=== PATIENT | male | born 1945 | race Caucasian/White ===

== ENCOUNTER 2016-11-17 22:41 | Observation (INO) | payer MEDICARE ==
[2016-11-17] MEDS ORDERED: ASPIRIN 81 MG CHEW PO STA (23:23)
[2016-11-17 23:38] LABS: Basophils % (A) 1 %; CH 32.8; CHCM 34.8; Eosinophils # (A) 0.2 k/uL (0-0.7); Eosinophils % (A) 2 %; HCT 42.5 % (39.0-53.0); HDW 2.39; Luc # (Auto) 0.34; Luc % (Auto) 4; Lymphocytes # (A) 2.1 k/uL (1.0-4.8); Lymphocytes % (A) 25 %; MCH 33.5 pg (25.0-35.0); MCHC 35.4 g/dL (31.0-37.0); MCV 94.8 fL (80.0-100.0); Mean Platelet Volume 7.2; Monocytes # (A) 0.8 k/uL (0-1.0); Monocytes % (A) 9 %; Neutrophils # (A) 4.9 k/uL (1.3-7.7); Neutrophils % (A) 59 %; RBC 4.48 m/uL (4.30-5.90); RDW 13.6 % (11.5-15.5); WBC 8.3 k/uL (3.8-10.6); WBC (Perox) 7.65
[2016-11-17 23:50] LABS: Prothrombin Time 9.9 sec (9.0-12.0)
[2016-11-17 23:52] LABS: ALT 44 U/L (21-72); AST 25 U/L (17-59); Alkaline Phosphatase 74 U/L (38-126); Anion Gap 11 mmol/L; Blood Urea Nitrogen 12 mg/dL (9-20); Calcium 9.5 mg/dL (8.4-10.2); Carbon Dioxide 25 mmol/L (22-30); Chloride 107 mmol/L (98-107); Glucose 94 mg/dL (74-99); Magnesium 2.1 mg/dL (1.6-2.3); Non-African American GFR(MDRD) >60 (>60 ml/min/1.73 sqM); Sodium 143 mmol/L (137-145); Total Bilirubin 0.5 mg/dL (0.2-1.3); Total Protein 6.8 g/dL (6.3-8.2)
[2016-11-18 00:05] LABS: Creatine Kinase 80 U/L (55-170)
--- NOTE | 2016-11-18 00:12 | XR ---
EXAM: XR Chest, 2 Views CLINICAL HISTORY: Reason: Chest Pain TECHNIQUE: Frontal and lateral views of the chest. COMPARISON: None. FINDINGS: Lungs: Bibasilar atelectasis and/or infiltrates, left greater than right. Pleural space: Unremarkable. No pneumothorax. Heart: Unremarkable. No cardiomegaly. Mediastinum: Atherosclerotic vascular calcifications involving the aortic arch. Bones/joints: Unremarkable. IMPRESSION: Bibasilar atelectasis and/or infiltrates, left greater than right.
[2016-11-18 00:19] LABS: Troponin I <0.012 ng/mL (0.000-0.034)
[2016-11-18] MEDS ORDERED: ONDANSETRON 4 MG/2 ML VIAL IVP PRN (00:23)
[2016-11-18] MEDS ORDERED: NALOXONE 0.4 MG/ML 1 ML VIAL IV PRN (00:23)
[2016-11-18] MEDS ORDERED: MORPHINE SULFATE 4 MG/ML SYRINGE IV PRN (00:23)
[2016-11-18] MEDS ORDERED: DEXTROSE 5%-0.45% NACL 1,000 ML IV SCH (00:30)
--- NOTE | 2016-11-18 00:32 | ED ---
General Adult HPI - General Chief complaint: Chest Pain Stated complaint: CHEST PAIN Time Seen by Provider: 11/17/16 22:55 Source: patient, RN notes reviewed Mode of arrival: wheelchair Limitations: no limitations - History of Present Illness Initial comments: 71-year-old male presenting with chest tightness that began approximately 2 PM today. Patient was at rest at the time. He denies any nausea, denies any radiating symptoms. States he may have had some mild shortness of breath at the time. He took nitroglycerin at home without any relief. Denies cough denies fever. Patient states he was pushing a car earlier in the day and believes this may be the cause of his pain. However he denies any pain while he was pushing the car and again his pain began at rest. Patient states his last stress test several years ago. He does have history of hypertension, no history diabetes, no history of tobacco smoking. - Related Data Home Medications Medication Instructions Recorded Confirmed Aspirin 81 mg PO DAILY 11/17/16 11/17/16 Cyanocobalamin (Vitamin B-12) 1,000 mcg PO DAILY 11/17/16 11/17/16 [Vitamin B-12] Diclofenac Sodium [Voltaren] 75 mg PO BID 11/17/16 11/17/16 Multivitamins, Thera [Multivitamin 1 tab PO DAILY 11/17/16 11/17/16 (formulary)] Thiamine [Vitamin B-1] 100 mg PO DAILY 11/17/16 11/17/16 amLODIPine [Norvasc] 5 mg PO DAILY 11/17/16 11/17/16 Allergies Allergy/AdvReac Type Severity Reaction Status Date / Time No Known Allergies Allergy Verified 11/17/16 23:10 Review of Systems ROS Statement: Those systems with pertinent positive or pertinent negative responses have been documented in the HPI. ROS Other: All systems not noted in ROS Statement are negative. Past Medical History Past Medical History: Hypertension History of Any Multi-Drug Resistant Organisms: None Reported Past Surgical History: Hernia Repair, Orthopedic Surgery, Prostate Surgery Additional Past Surgical History / Comment(s): cataract Past Psychological History: No Psychological Hx Reported Smoking Status: Never smoker Past Alcohol Use History: Daily Past Drug Use History: None Reported General Exam Limitations: no limitations General appearance: alert, in no apparent distress Head exam: Present: atraumatic, normocephalic Eye exam: Present: normal appearance, PERRL ENT exam: Present: normal exam, mucous membranes moist Neck exam: Present: normal inspection, full ROM Respiratory exam: Present: normal lung sounds bilaterally. Absent: respiratory distress Cardiovascular Exam: Present: regular rate, normal rhythm GI/Abdominal exam: Present: soft. Absent: distended, tenderness Extremities exam: Present: normal inspection, normal capillary refill, other ( Bilateral DP pulses intact). Absent: pedal edema Back exam: Present: normal inspection Neurological exam: Present: alert, oriented X3 Psychiatric exam: Present: normal affect, normal mood Skin exam: Present: warm, dry. Absent: diaphoretic Course Vital Signs 11/17/16 11/17/16 11/18/16 22:54 23:18 00:16 Temperature 98.0 F 98.0 F Pulse Rate 92 83 73 Respiratory 18 16 16 Rate Blood Pressure 140/88 145/87 128/73 O2 Sat by Pulse 96 95 96 Oximetry - Reevaluation(s) Reevaluation #1: 11/18/16 00:30 On reevaluation the patient remains asymptomatic. EKG Findings - EKG Comments: EKG Findings:: EKG obtained in the emergency department shows normal sinus rhythm with a ventricular rate 81, IA interval 184, QRS duration 92, QTc 441, there is no ST segment elevation or depression, no T-wave abnormalities Medical Decision Making - Medical Decision Making 71-year-old male with history of hypertension presenting with chest pain which occurred at rest. Patient believes his symptoms are related to moving a car earlier in the day. He describes them as tightness across his chest. Denies any radiating symptoms. Patient's pain is resolving emergency department. EKG is nonischemic. Chest x-ray shows by similar atelectasis versus infiltrate, although there is no history of cough no history of fever, pneumonia. Unlikely. Initial laboratory studies including cardiac enzymes is unremarkable. Patient will be placed in observation for serial cardiac enzymes and cardiology evaluation. He is made nothing by mouth. - Lab Data Result diagrams: 11/17/16 23:15 11/17/16 23:15 Lab Results 11/17/16 11/17/16 11/17/16 Range/Units 23:15 23:15 23:15 WBC 8.3 (3.8-10.6) k/uL RBC 4.48 (4.30-5.90) m/uL Hgb 15.0 (13.0-17.5) gm/dL Hct 42.5 (39.0-53.0) % MCV 94.8 (80.0-100.0) fL MCH 33.5 (25.0-35.0) pg MCHC 35.4 (31.0-37.0) g/dL RDW 13.6 (11.5-15.5) % Plt Count 184 (150-450) k/uL Neutrophils % 59 % Lymphocytes % 25 % Monocytes % 9 % Eosinophils % 2 % Basophils % 1 % Neutrophils # 4.9 (1.3-7.7) k/uL Lymphocytes # 2.1 (1.0-4.8) k/uL Monocytes # 0.8 (0-1.0) k/uL Eosinophils # 0.2 (0-0.7) k/uL Basophils # 0.0 (0-0.2) k/uL PT (9.0-12.0) sec INR (<1.1) APTT (22.0-30.0) sec Sodium 143 (137-145) mmol/L Potassium 5.0 (3.5-5.1) mmol/L Chloride 107 (98-107) mmol/L Carbon Dioxide 25 (22-30) mmol/L Anion Gap 11 mmol/L BUN 12 (9-20) mg/dL Creatinine 0.70 (0.66-1.25) mg/dL Est GFR (MDRD) Af Amer >60 (>60 ml/min/1.73 sqM) Est GFR (MDRD) Non-Af >60 (>60 ml/min/1.73 sqM) Glucose 94 (74-99) mg/dL Calcium 9.5 (8.4-10.2) mg/dL Magnesium 2.1 (1.6-2.3) mg/dL Total Bilirubin 0.5 (0.2-1.3) mg/dL AST 25 (17-59) U/L ALT 44 (21-72) U/L Alkaline Phosphatase 74 (38-126) U/L Total Creatine Kinase 80 (55-170) U/L CK-MB (CK-2) 1.0 (0.0-2.4) ng/mL CK-MB (CK-2) Rel Index 1.3 Troponin I <0.012 (0.000-0.034) ng/mL NT-Pro-B Natriuret Pep pg/mL Total Protein 6.8 (6.3-8.2) g/dL Albumin 3.9 (3.5-5.0) g/dL 11/17/16 11/17/16 Range/Units 23:15 23:15 WBC (3.8-10.6) k/uL RBC (4.30-5.90) m/uL Hgb (13.0-17.5) gm/dL Hct (39.0-53.0) % MCV (80.0-100.0) fL MCH (25.0-35.0) pg MCHC (31.0-37.0) g/dL RDW (11.5-15.5) % Plt Count (150-450) k/uL Neutrophils % % Lymphocytes % % Monocytes % % Eosinophils % % Basophils % % Neutrophils # (1.3-7.7) k/uL Lymphocytes # (1.0-4.8) k/uL Monocytes # (0-1.0) k/uL Eosinophils # (0-0.7) k/uL Basophils # (0-0.2) k/uL PT 9.9 (9.0-12.0) sec INR 1.0 (<1.1) APTT 23.0 (22.0-30.0) sec Sodium (137-145) mmol/L Potassium (3.5-5.1) mmol/L Chloride (98-107) mmol/L Carbon Dioxide (22-30) mmol/L Anion Gap mmol/L BUN (9-20) mg/dL Creatinine (0.66-1.25) mg/dL Est GFR (MDRD) Af Amer (>60 ml/min/1.73 sqM) Est GFR (MDRD) Non-Af (>60 ml/min/1.73 sqM) Glucose (74-99) mg/dL Calcium (8.4-10.2) mg/dL Magnesium (1.6-2.3) mg/dL Total Bilirubin (0.2-1.3) mg/dL AST (17-59) U/L ALT (21-72) U/L Alkaline Phosphatase (38-126) U/L Total Creatine Kinase (55-170) U/L CK-MB (CK-2) (0.0-2.4) ng/mL CK-MB (CK-2) Rel Index Troponin I (0.000-0.034) ng/mL NT-Pro-B Natriuret Pep 103 pg/mL Total Protein (6.3-8.2) g/dL Albumin (3.5-5.0) g/dL Disposition Clinical Impression: Chest pain Disposition: ADMITTED IP TO THIS [facility] Condition: Stable Referrals: Edgar Lopes MD [Primary Care Provider] - 1-2 days Decision to Admit Reason: Admit from EC Decision Date: 11/18/16 Decision Time: 00:32
[2016-11-18 01:21] VITALS: RESP 16
[2016-11-18 01:23] VITALS: BMI 34.4
[2016-11-18 06:32] LABS: Creatine Kinase 63 U/L (55-170)
[2016-11-18 06:44] LABS: Creatine Kinase MB 0.7 ng/mL (0.0-2.4); Troponin I <0.012 ng/mL (0.000-0.034)
[2016-11-18] MEDS ORDERED: ETODOLAC 400 MG TAB PO SCH (09:00)
[2016-11-18] MEDS ORDERED: ASPIRIN 81 MG CHEW PO SCH (09:00)
[2016-11-18] MEDS ORDERED: amLODIPine 5 MG TAB PO SCH (09:00)
--- NOTE | 2016-11-18 11:15 | ECHOF ---
Referral Reason:Systolic Murmur and Chest pain MEASUREMENTS -------- HEIGHT: 170.2 cm WEIGHT: 99.8 kg BP: 130/75 RVIDd: 3.7 cm (< 3.3) IVSd: 1.0 cm (0.6 - 1.1) LVIDd: 4.4 cm (3.9 - 5.3) LVPWd: 1.0 cm (0.6 - 1.1) IVSs: 1.5 cm LVIDs: 2.5 cm LVPWs: 1.5 cm LAESV Index (A-L): 14.96 ml/m Ao Diam: 3.5 cm (2.0 - 3.7) AV Cusp: 2.1 cm (1.5 - 2.6) LA Diam: 4.1 cm (2.7 - 3.8) MV E Ilya: 0.75 m/s MV DecT: 396 ms MV A Ilya: 1.09 m/s MV E/A Ratio: 0.68 RAP: 5.00 mmHg RVSP: 27.98 mmHg FINDINGS -------- Sinus rhythm. This was a technically adequate study. The left ventricular size is normal. Left ventricular wall thickness is normal. Overall left ventricular systolic function is normal with, an EF between 55 - 60 %. The right ventricle is normal in size and function. Normal LA size by volume 22+/-6 ml/m2. The right atrium is normal in size. The aortic valve is trileaflet and appears structurally normal. Trace to mild aortic regurgitation. The mitral valve is normal. Mild mitral regurgitation is present. Mild tricuspid regurgitation present. There is no evidence of pulmonary hypertension. The right ventricular systolic pressure, as measured by Doppler, is 27.98mmHg. Trace/mild (physiologic) pulmonic regurgitation. The aortic root size is normal. Normal inferior vena cava with normal inspiratory collapse consistent with estimated right atrial pressure of 5 mmHg. There is no pericardial effusion. Large echo free space in the liver, measuring 10.5 cm x 10.8 cm. This echo free space may be compromising right ventricular function. CONCLUSIONS -------- 1. Sinus rhythm. 2. There is no evidence of pulmonary hypertension. 3. Trace/mild (physiologic) pulmonic regurgitation. 4. The aortic root size is normal. 5. There is no pericardial effusion. 6. Large echo free space in the liver, measuring 10.5 cm x 10.8 cm. 7. This echo free space may be compromising right ventricular function. 8. This was a technically adequate study. 9. The left ventricular size is normal. 10. Overall left ventricular systolic function is normal with, an EF between 55 - 60 %. 11. Normal LA size by volume 22+/-6 ml/m2. 12. The aortic valve is trileaflet and appears structurally normal. 13. Trace to mild aortic regurgitation. 14. Mild mitral regurgitation is present. 15. Mild tricuspid regurgitation present. SUPERVISOR STAGE CARPENTRY: Orestes Olson RDCS
[2016-11-18 11:48] VITALS: BP 130/89; PULSE 96; TEMP 98
[2016-11-18 12:06] LABS: Creatine Kinase 67 U/L (55-170)
[2016-11-18 12:20] LABS: Creatine Kinase MB 0.6 ng/mL (0.0-2.4); Troponin I <0.012 ng/mL (0.000-0.034)
--- NOTE | 2016-11-18 13:49 | CONS ---
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 He has hypertension , degenerative joint disease, reasonably active person. Yesterday at about 11: 00 or so his car broke down and he was pushing the car. Had some physical activity with that, then he went home, rested and at 2 p.m. while he was rest felt some uncomfortable feeling in the chest and came into the hospital. He is resting comfortably without symptoms. Apparently he took some nitro, did not have any relief. Pain seems musculoskeletal. He does not smoke. His stress test was more than 5 to 10 years ago. He is a reasonably active person. At the time of my evaluation, he is resting comfortably. EKG is unremarkable. Troponins are normal. He drinks alcohol on a daily basis, but does not smoke. His hypertension is under good control. He is asymptomatic at the time of my evaluation. PAST MEDICAL HISTORY: 1. Hypertension. 2. Family history of CAD. 3. History of hernia repair, orthopedic surgery, prostate surgery. ALLERGIES: None. Medications include amlodipine 5 mg daily, vitamin supplements and also takes Voltaren for his arthritis pain and aspirin 81 mg daily. On examination, blood pressure is 130/70, pulse rate is 70 per minute and regular. HEENT: Unremarkable. Fundus was not examined by me. Neck is supple. No JVD. I do not hear a carotid bruit. Heart exam revealed S1 and S2 with a short systolic murmur at the base. Second heart sound is preserved. Lungs are clear. Abdomen is soft, nontender. Lower extremities reveal normal pulses. No edema. Central nervous system is normal. EKG revealed a sinus mechanism without significant ST-T changes. IMPRESSION: 1. Chest pain syndrome, seems atypical. 2. Hypertension. 3. Family history of coronary artery disease. RECOMMENDATION: I am recommending an echocardiogram to assess a systolic murmur and a stress echo to rule out ischemia. EKG and troponins are normal. Based on these findings, we will make further recommendations. If stress echo is normal, he can be discharged. Thank you very much for the consult. ANDREW
--- NOTE | 2016-11-18 16:30 | ECHOS ---
Referral Reason:chest pain MEASUREMENTS -------- HEIGHT: 170.2 cm WEIGHT: 99.8 kg BP: FINDINGS -------- Utilizing the standard Dank protocol the patient was exercised for 6 minutes, 0 seconds, achieving a maximum heart rate of 130 , which is 86% of predicted maximal heart rate. There was physiologic heart rate and blood pressure response to exercise. Max Heart Rate: 130 % of Max Predicted Heart Rate: 86% Rest Heart Rate: 86 Rest BP: 143/81 Max BP: 198/93 Mets Achieved: 6.9 The test was stopped because of fatigue. This level of exercise represents an average exercise tolerance for age. Sinus rhythm. In response to stress, the ECG showed no ST-T wave changes (see exercise report for details). Rare PVC's In response to stress, the ECG showed no ST-T wave changes (see exercise report for details). There were normal blood pressure and heart rate responses to stress. LV size, wall thickness and systolic function are normal, with an EF of 60%. Echo images were acquired at peak stress which demonstrated appropriate augmentation of all left ventricular segments with slight decrease in cavity size. CONCLUSIONS -------- 1. The test was stopped because of fatigue. 2. This level of exercise represents an average exercise tolerance for age. 3. In response to stress, the ECG showed no ST-T wave changes (see exercise report for details). 4. No 2D echocardiographic evidence of inducible ischemia to achieved workload. SKID ROAD WORKER: Madeleine Núñez, YANNA MTDD
--- NOTE | 2016-11-18 18:12 | HP ---
CHIEF COMPLAINT: Chest pain. HISTORY OF ILLNESS: Mr. Guerrier is a 71-year-old male with known history of alcohol abuse who drinks about 6 to 8 beers per day. He came to the hospital with complaints of chest pain that started approximately 2 p.m. yesterday. Patient was at rest at that time. He says that he did push a car, and he was having chest pain at that time. Otherwise, denied any nausea or vomiting. Denied any radiation of the pain to the left arm or neck or radiation to the back. Patient did have mild shortness of breath; no diaphoresis. The patient did take nitroglycerin at home, without any relief. The patient's last stress test was several years ago. He does have a history of hypertension. No history of diabetes mellitus. He does not smoke. The patient does drink on a daily basis. No recent illnesses. No sick contacts at home. No recent travel. REVIEW OF SYSTEMS: CONSTITUTIONAL: No fever. No chills. No weakness. RESPIRATORY: No cough or sputum production. CARDIOVASCULAR: Patient denies any chest pain now. No leg swelling. No palpitations. ABDOMEN: No nausea, vomiting, abdominal pain. GENITOURINARY: No dysuria. No hematuria. ENDOCRINE: Negative. PSYCHIATRY: Negative. SKIN: Negative. MUSCULOSKELETAL: Negative. All other 14-point review of systems negative except as above. PAST MEDICAL HISTORY: 1. Hypertension. 2. Alcohol abuse. PAST SURGICAL HISTORY: 1. Hernia repair. 2. Orthopedic surgery. 3. Prostate surgery. No psychosocial history. SOCIAL HISTORY: Patient was never a smoker. Does drink alcohol, 6 to 8 beers per day. Denied any marijuana. Denied any drugs or IVDU. ALLERGIES: NO KNOWN DRUG ALLERGIES. FAMILY HISTORY: Denied any history of hypertension or diabetes mellitus in the family. Home medications include: 1. Aspirin. 2. Cyanocobalamin. 3. Diclofenac. 4. Multivitamins. 5. Thiamine. 6. Norvasc. PHYSICAL EXAMINATION: [id number] male lying in bed comfortably. Awake, alert, oriented x3. He appears to be in no distress. VITALS: Blood pressure 130/75, pulse rate 62, respiration 16, temperature afebrile, pulse ox 96% on room air. HEENT: Atraumatic, normocephalic. Neck is supple. No JVD. CVS EXAM: S1, S2 heard. ( ) systolic murmur. No gallop. No rub. LUNGS: Bilateral air entry is present. No wheezing. No crackles. Non-labored breathing. ABDOMEN: Soft, non-tender. Bowel sounds are present. MANUFACTURING ADVISOR: Awake, alert, oriented x3. No focal deficit. EXTREMITIES: No edema. Pulses palpable bilaterally. No clubbing or cyanosis. PSYCHIATRIC: Cooperative. LABORATORY DATA: WBC 8.3, hemoglobin 15.0, platelets 184. INR 1.0. Sodium 143, potassium 5.0, chloride 107. Bicarb is 25. BUN 12, creatinine 0.7. GFR greater than 60. Calcium 9.5. Magnesium 2.1. Liver enzymes are not elevated. Troponin x3 negative. NTproBNP is not elevated at 103. Albumin 3.9. IMPRESSION: 1. Atypical chest pain. Rule out acute coronary syndrome at this time. 2. Hypertension. 3. Family history of coronary artery disease. 4. Alcohol abuse on a daily basis. DISCUSSION AND PLAN: Patient will be continued on heparin. Cardiology has seen the patient and recommended a stress test at this time. Will continue the telemetry monitoring. Serial troponins are negative. EKG showed normal sinus rhythm with no ST-T wave changes. Will continue the current management. Further recommendations based on the clinical course. FELISAD
--- NOTE | 2016-11-19 09:30 | DS ---
DATE OF ADMISSION: 11/18/2016 DATE OF DISCHARGE: 11/18/2016 Cardiology consultation and patient did have echocardiogram. IMPRESSION: 1. Atypical chest pain, ruled out acute coronary syndrome. Serial EKG and troponins are negative. 2-D echo showed normal ejection fraction. No wall motion abnormalities. Chest pain resolved now. 2. Alcohol abuse 6 to 8 beers per day. Counseled extensively. 3. Hypertension. 4. Family history of coronary artery disease. 5. History of prostate surgery. HOSPITAL COURSE: Mr. Guerrier is a 71-year-old male with above medical problems was admitted to the hospital with complaints of substernal chest pain. No radiation associated with mild shortness of breath and no diaphoresis. Patient was initially started on telemetry. Serial EKGs and troponins were done which were negative. Patient was seen by Cardiology and recommended 2-D echocardiogram , which was done showing normal ejection fraction. No wall motion abnormalities have been noted and no significant valvular changes have been noted as well. Otherwise patient's chest pain has completely resolved last night. Serial troponins are negative and telemetry showed no joint changes. Otherwise, patient is asymptomatic now and is stable for discharge home. Follow the primary care physician. Patient was counseled for alcohol abuse and was advised to take [id number] pain medications. DISCHARGE PHYSICAL EXAMINATION: A 71-year-old male lying in bed awake, alert, oriented x3. Appears to be in no apparent distress. Vital signs show blood pressure 130/89, pulse 96, respirations 16, temperature afebrile, pulse ox 94% on room air. LABORATORY DATA: Reviewed. Discharge physical examination done. DISCHARGE MEDICATIONS: 1. Aspirin 81 mg p.o. daily. 2. Vitamin B12 1000 mcg p.o. daily. 3. Voltaren 75 mg p.o. b.i.d. p.r.n. 4. Multivitamin 1 tablet p.o. daily. 5. Thiamin 100 mg p.o. daily. 6. Amlodipine 5 mg p.o. daily. Patient will be discharged home in stable condition. Activity as tolerated. Heart healthy diet. Home with self care. Follow with primary care physician Dr. Edgar Lopes in 1 to 2 days. NOTE: Patient also found to have cystic lesion in the liver and advised to follow with primary care physician for that. [facility]
== END 2016-11-18 13:50 | disposition home or self-care (01) ==
LOC: EC 22:41 → 3OBS 11-18 00:23
PROVIDERS: ADMIT Internal Medicine; ATTEND Internal Medicine
DX: R07.89 Other chest pain (principal); R07.1 Chest pain on breathing; R06.02 Shortness of breath; F10.10 Alcohol abuse, uncomplicated; I10 Essential (primary) hypertension; Z79.82 Long term (current) use of aspirin; Z79.899 Other long term (current) drug therapy; Z82.49 Family history of ischemic heart disease and other diseases of the circulatory system; M19.90 Unspecified osteoarthritis, unspecified site
CPT/HCPCS: 99285 ×2; 93005 ×2; 36415; 94760; 93017; 93306; 93350; 83880; 80053; 82550 ×2; 82553 ×2; 83735; 84484 ×2; 85025; 85610; 85730; 71020; G0378

== ENCOUNTER → 2016-11-23 | Outpatient (CLI) | payer MEDICARE ==
--- NOTE | 2016-11-23 15:54 | CT ---
EXAMINATION TYPE: CT abdomen pelvis wo/w con DATE OF EXAM: 11/23/2016 REFERENCE: NONE HISTORY: K76.89 Other Specified Disorders Of Liver HISTORY: Liver cyst without symptoms. REFERENCE: NONE CT DLP: [id number] mGy Automated exposure control for dose reduction was used. TECHNIQUE: Helical acquisition through the abdomen and pelvis was obtained following the oral ingesti on of with Oral Contrast and following intravenous administration of 100 mL of Omnipaque 300. The akilah a was reformatted in axial, coronal and sagittal projections. FINDINGS: There is minimal dependent atelectasis in the dependent portions of the lungs. There is no pleural or pericardial fluid. The heart is not enlarged. There is coronary artery calcification as w ell as other vascular calcifications present. There is a small hiatal hernia. Within the abdomen, there is a 10.8 x 9.8 x 10.1 cm simple appearing cyst within the left lobe of the liver. There is a questionable 2 cm adjacent cyst as well as 2 other adjacent cysts measuring 3.4 an d 0.8 cm respectively. The liver is not enlarged. The gallbladder is contracted. The spleen is unrema rkable. Both adrenal glands are normal. Both kidneys demonstrate function and appear more normal. The pancreas is unremarkable. There is no significant retroperitoneal, iliac or inguinal adenopathy. There are bilateral hip prostheses in place causing severe streak artifact through the pelvis. The bl adder cannot be assessed. There are scattered diverticula along the left side of the colon. There is no radiographic evidence o f diverticulitis. The appendix is not visualized. Small bowel loops are normal. There is been a previous ventral hernia repair. There is no free fluid and no free air. There is degenerative disc disease, facet arthropathy and hypertrophic spondylosis involving the spin e. There is a mild levoscoliosis. The cyst wall measures approximately 5.5 mm. IMPRESSION: 1. MULTIPLE HEPATIC CYSTS IN THE LEFT LOBE OF THE LIVER. THESE APPEAR FAIRLY SIMPLY CYSTIC. 2. SMALL HIATAL HERNIA. 3. UNCOMPLICATED DIVERTICULAR CHANGE INVOLVING THE LEFT SIDE OF THE COLON.
== END | disposition home or self-care (01) ==
LOC: RADCTMAIN 15:16
PROVIDERS: ATTEND Internal Medicine
DX: K76.89 Other specified diseases of liver (principal); K44.9 Diaphragmatic hernia without obstruction or gangrene; K57.30 Diverticulosis of large intestine without perforation or abscess without bleeding
CPT/HCPCS: 74178; Q9967

== ENCOUNTER → 2017-10-26 | Outpatient (CLI) | payer MEDICARE ==
--- NOTE | 2017-10-26 09:35 | US ---
EXAMINATION TYPE: US carotid duplex BILAT DATE OF EXAM: 10/26/2017 COMPARISON: NONE CLINICAL HISTORY: G45.9 TIA. Blurred vision, TIA EXAM MEASUREMENTS: RIGHT: Peak Systolic Velocity (PSV) cm/sec ----- Right CCA: 54.6 ----- Right ICA: 58.1 ----- Right ECA: 104.0 ICA/CCA ratio: 1.1 RIGHT: End Diastole cm/sec ----- Right CCA: 11.9 ----- Right ICA: 20.6 ----- Right ECA: 17.3 LEFT: Peak Systolic Velocity (PSV) cm/sec ----- Left CCA: 59.1 ----- Left ICA: 67.3 ----- Left ECA: 105.4 ICA/CCA ratio: 1.1 LEFT: End Diastole cm/sec ----- Left CCA: 15.5 ----- Left ICA: 22.0 ----- Left ECA: 20.1 VERTEBRALS (direction of flow): Right Vertebral: Antegrade Left Vertebral: Antegrade Rhythm: Normal No elevated velocities, no significant stenosis. IMPRESSION: 1. No significant hemodynamic stenosis by carotid Doppler ultrasound. Criteria for Assigning % of Stenosis / Diameter reduction (Estimation based on the indirect measurements of the internal carotid artery velocities (ICA PSV). 1. Normal (no stenosis)=ICA PSV < 125 cm/s: ratio < 2.0: ICA EDV<40 cm/s. 2. Less than 50% stenosis=ICA PSV < 125 cm/s: ratio < 2.0: ICA EDV<40 cm/s. 3. 50 to 69% stenosis=ICA PSV of 125 to 230 cm/s: ration 2.0 ? 4.0: ICA EDV 40-100 cm/s. 4. Greater than 70% stenosis to near occlusion= ICA PSV > 230 cm/s: ratio > 4.0: ICA EDV > 100 cm/s. 5. Near occlusion= ICA PSV velocities may be low or undetectable: variable ratio and ICA EDV. 6. Total occlusion=unable to detect flow.
== END | disposition home or self-care (01) ==
LOC: RADUSWWP 08:30
PROVIDERS: ATTEND Internal Medicine
DX: G45.9 Transient cerebral ischemic attack, unspecified (principal)
CPT/HCPCS: 93880

== ENCOUNTER → 2018-10-18 | Outpatient (CLI) | payer MEDICARE | END | disposition home or self-care (01) | LOC: LABWHC1 09:06 | PROVIDERS: ATTEND Internal Medicine | DX: Z08 Encounter for follow-up examination after completed treatment for malignant neoplasm (principal); Z85.46 Personal history of malignant neoplasm of prostate | CPT/HCPCS: 36415; 84153 ==

== ENCOUNTER → 2019-03-14 | Outpatient (CLI) | payer MEDICARE | END | disposition home or self-care (01) | LOC: LABWHC1 10:08 | PROVIDERS: ATTEND Internal Medicine | DX: Z85.46 Personal history of malignant neoplasm of prostate (principal) | CPT/HCPCS: 36415; 84153 ==

== ENCOUNTER 2019-03-31 10:22 | Emergency (ER) | payer MEDICARE ==
[2019-03-31 10:31] VITALS: BP 137/94; PULSE 98; RESP 18; TEMP 97.6
--- NOTE | 2019-03-31 10:54 | ED ---
General Adult HPI - General Chief complaint: Headache Stated complaint: Sinus infection Time Seen by Provider: 03/31/19 10:35 Source: patient, RN notes reviewed Mode of arrival: ambulatory Limitations: no limitations - History of Present Illness Initial comments: 74-year-old male with a past medical history of hypertension, prostate cancer, sciatica presents to the emergency department for a chief complaint of sinus infection. Patient states he has had a sinus infection for about 3 weeks. States he was on azithromycin and another unknown antibiotic. States it started to improve and then worsened again about 3 days ago. States she has pressure above his right eye in the right side of his face. States it radiates to his ear. Denies any dental pain. Denies fevers or chills. Patient states he is just here for another antibiotic. States he would have seen his doctor but since it is Monday he could not do so.Patient has no other complaints at this time including shortness of breath, chest pain, abdominal pain, nausea or vomiting, headache, or visual changes. - Related Data Home Medications Medication Instructions Recorded Confirmed Aspirin 81 mg PO DAILY 11/17/16 11/17/16 Cyanocobalamin (Vitamin B-12) 1,000 mcg PO DAILY 11/17/16 11/17/16 [Vitamin B-12] Diclofenac Sodium [Voltaren] 75 mg PO BID 11/17/16 11/17/16 Multivitamins, Thera [Multivitamin 1 tab PO DAILY 11/17/16 11/17/16 (formulary)] Thiamine [Vitamin B-1] 100 mg PO DAILY 11/17/16 11/17/16 amLODIPine [Norvasc] 5 mg PO DAILY 11/17/16 11/17/16 Previous Rx's Medication Instructions Recorded Amoxicillin/Potassium Clav 1 tab PO Q12HR #20 tab 03/31/19 [Augmentin 875-125 Tablet] Fluticasone Nasal [place] [Flonase 1 spray EA NOSTRIL DAILY #1 bottle 03/31/19 Nasal [place]] predniSONE 50 mg PO DAILY #5 tablet 03/31/19 Allergies Allergy/AdvReac Type Severity Reaction Status Date / Time No Known Allergies Allergy Verified 03/31/19 10:28 Review of Systems ROS Statement: Those systems with pertinent positive or pertinent negative responses have been documented in the HPI. ROS Other: All systems not noted in ROS Statement are negative. Past Medical History Past Medical History: Cancer, Hypertension Additional Past Medical History / Comment(s): brusitis/sciatica in upper legs, prostate ca with removal History of Any Multi-Drug Resistant Organisms: None Reported Past Surgical History: Heart Catheterization, Hernia Repair, Orthopedic Surgery, Prostate Surgery Additional Past Surgical History / Comment(s): cataract, edda hip replacements Past Anesthesia/Blood Transfusion Reactions: No Reported Reaction Past Psychological History: No Psychological Hx Reported Smoking Status: Never smoker Past Alcohol Use History: Daily Past Drug Use History: None Reported - Past Family History Father Family Medical History: Coronary Artery Disease (CAD) Additional Family Medical History / Comment(s): passed at 41 from "heart problems" General Exam Limitations: no limitations General appearance: alert, in no apparent distress Head exam: Present: atraumatic, normocephalic, normal inspection Eye exam: Present: normal appearance, PERRL, EOMI. Absent: scleral icterus, conjunctival injection, periorbital swelling ENT exam: Present: normal exam, mucous membranes moist, TM's normal bilaterally, normal external ear exam, other (No tenderness of the temporal arteries bilaterally. Temporal pulse 2+ bilat. minimal tenderness of the frontal and maxillary sinus without erythema or edema ). Absent: normal oropharynx (Patient has moderate postnasal drip noted, uvula midline, no tonsillar exudates. Tonsillar pillars symmetric bilaterally, no evidence for abscess.) Neck exam: Present: normal inspection, full ROM. Absent: tenderness, meningismus, lymphadenopathy Respiratory exam: Present: normal lung sounds bilaterally. Absent: respiratory distress, wheezes, rales, rhonchi, stridor Cardiovascular Exam: Present: regular rate, normal rhythm, normal heart sounds. Absent: systolic murmur, diastolic murmur, rubs, gallop, clicks Neurological exam: Present: alert, oriented X3, CN II-XII intact, normal gait, other ([id number]) Psychiatric exam: Present: normal affect, normal mood Course Vital Signs 03/31/19 10:28 Temperature 97.6 F Pulse Rate 98 Respiratory 18 Rate Blood Pressure 137/94 O2 Sat by Pulse 95 Oximetry Medical Decision Making - Medical Decision Making Patient is well appearing. Vitals are stable. Patient has had sinusitis for ab out 3 weeks and has been on antibiotic's. This did improve but then worsened again 3 days ago. Patient has right-sided headache around frontal and maxillary sinuses. No tenderness of the temporal artery. No erythema or edema of the sinuses however there is minimal tenderness. Patient does have moderate postnasal drip noted which is likely contributing to his mild pharyngitis. I did recommend patient have CT brain and sinuses performed to rule out any other contributing factors. Patient refuses this. He is capable of making decisions at this time. He is aware of the risks of refusing this and what we are looking for including masses. 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 States that he will return if symptoms worsen for further testing but right now he would just like treatment for his sinusitis. Symptoms are consistent with sinusitis including mild right ear pain, postnasal drip, tenderness over the sinuses, slight pharyngitis. He states he will follow-up with Dr. Lopes on Monday and wanted to go there today but his office is closed. He again knows he can return at anytime for further testing. Disposition Clinical Impression: Sinusitis, Headache Disposition: HOME SELF-CARE Condition: Good Instructions (If sedation given, give patient instructions): Sinusitis (ED), Acute Headache (ED) Additional Instructions: Please take medications as directed. Please follow-up with Dr. Lopes tomorrow. If symptoms are worsening return to the emergency department for further testing as discussed. Prescriptions: Amoxicillin/Potassium Clav [Augmentin 875-125 Tablet] 1 tab PO Q12HR #20 tab Fluticasone Nasal [place] [Flonase Nasal [place]] 1 spray EA NOSTRIL DAILY #1 bottle predniSONE 50 mg PO DAILY #5 tablet Is patient prescribed a controlled substance at d/c from ED?: No Referrals: Edgar Lopes MD [Primary Care Provider] - 1-2 days Time of Disposition: 10:52
== END 2019-03-31 11:00 | disposition home or self-care (01) ==
LOC: EC 10:22
DX: J32.9 Chronic sinusitis, unspecified (principal); I10 Essential (primary) hypertension; Z79.82 Long term (current) use of aspirin; Z79.899 Other long term (current) drug therapy; Z96.643 Presence of artificial hip joint, bilateral; Z85.46 Personal history of malignant neoplasm of prostate
CPT/HCPCS: 99283

== ENCOUNTER → 2019-04-09 | Outpatient (CLI) | payer MEDICARE ==
--- NOTE | 2019-04-09 09:09 | CT ---
EXAMINATION TYPE: CT brain w con DATE OF EXAM: 04/09/2019 COMPARISON: None HISTORY: 74-year-old male Recurrent sinusitis CT DLP: 1574.0 mGycm Automated exposure control for dose reduction was used. Technique: CT scan of the head is performed with IV Contrast, patient injected with 100 mL of Isovue 300. Coronal and sagittal reconstructions performed. FINDINGS: There is no abnormal enhancing mass or midline shift identified. The ventricles and sulci are within normal limits in size. Dural venous sinuses are patent. Mild generalized supratentorial volume loss. Moderate to severe patchy white matter hypodensities in both cerebral hemispheres. Facial bones reported separately. Mastoid air cells and middle ear cavities are clear. IMPRESSION: Mild generalized atrophy and moderate to severe patchy burden of chronic small vessel ischemic diseas e. No enhancing lesions. Paranasal sinuses reported separately.
--- NOTE | 2019-04-09 09:34 | CT ---
EXAMINATION TYPE: CT sinus w con DATE OF EXAM: 04/09/2019 COMPARISON: None HISTORY: 74-year-old male Recurrent sinusitis CT DLP: 1574 mGycm Automated exposure control for dose reduction was used. TECHNIQUE: Noncontrast axial views of the paranasal sinuses were obtained after administration of 100 mL Isovue 300 IV contrast. Coronal reconstructions were performed. FINDINGS: PARANASAL SINUSES: 9 mm mucosal retention cyst medial wall left maxillary sinus. Trace mucosal thickening floor of the r ight maxillary sinus. Additional trace mucosal thickening anterior ethmoid air cells. Sphenoid and frontal sinuses are well pneumatized. There is no air-fluid level. Reactive silvana- osteogenesis is not seen. There is no destruction of the osseous barton of the paranasal sinuses. THE NASAL CAVITY: The osteomeatal complexes are patent. Rightward nasal septal deviation. The imaged brain and orbits are normal in appearance. Reformatted images confirm above findings. IMPRESSION: 1. Trace mucosal thickening involving the anterior ethmoid air cells and maxillary sinuses. A 9 mm mu cosal retention cyst also noted in the left maxillary sinus. 2. Rightward nasal septal deviation
== END | disposition home or self-care (01) ==
LOC: RADCTMAIN 06:54
PROVIDERS: ATTEND Internal Medicine
DX: G31.1 Senile degeneration of brain, not elsewhere classified (principal); I67.82 Cerebral ischemia; J32.9 Chronic sinusitis, unspecified
CPT/HCPCS: 70460; 70487; Q9967

== ENCOUNTER → 2020-10-20 | Outpatient (CLI) | payer MEDICARE ==
[2020-10-20 11:25] LABS: HCT 46.2 % (39.6-50.0); HGB 15.3 g/dL (13.0-17.0); MCH 33.4 pg (27.0-32.0); MCHC 33.1 g/dL (32.0-37.0); MCV 100.9 fL (80.0-97.0); Mean Platelet Volume 10.6 fL (9.5-12.2); Platelet Count 210 X 10*3/uL (140-440); RBC 4.58 X 10*6/uL (4.40-5.60); RDW 12.7 % (11.5-14.5); WBC 5.62 X 10*3/uL (4.50-10.00)
[2020-10-20 16:06] LABS: ALT 26 U/L (10-49); AST 25 U/L (14-35); African American GFR (CKD) 107.7 (60.0-200.0); Albumin/Globulin Ratio 1.43 (1.60-3.17); Alkaline Phosphatase 72 U/L (41-126); BUN/Creat Ratio 22.86 Ratio (12.00-20.00); Calcium 8.8 mg/dL (8.7-10.3); Carbon Dioxide 25.3 mmol/L (21.6-31.8); Chloride 107 mmol/L (96-109); Cholesterol 146 mg/dL (0-200); Globulin 2.8 g/dL (1.6-3.3); Glucose 101 mg/dL (70-110); Sodium 139 mmol/L (135-145); Total Bilirubin 0.7 mg/dL (0.2-1.2); Total Protein 6.8 g/dL (6.2-8.2); Triglycerides <50.0 mg/dL (0.0-149.0)
[2020-10-20 18:16] LABS: Prostate Specific Antigen <0.1 ng/mL (0.0-6.5)
== END | disposition home or self-care (01) ==
LOC: LABWHC1 07:07
PROVIDERS: ATTEND Nurse Practitioner Adult Health
DX: Z00.00 Encounter for general adult medical examination without abnormal findings (principal); E55.9 Vitamin D deficiency, unspecified; C61 Malignant neoplasm of prostate; F41.1 Generalized anxiety disorder; I10 Essential (primary) hypertension; Z85.46 Personal history of malignant neoplasm of prostate
CPT/HCPCS: 36415; 80053; 80061; 82306; 84153; 84443; 85027

== ENCOUNTER 2020-11-17 11:11 | Emergency (ER) | payer MEDICARE ==
[2020-11-17 11:17] VITALS: PULSE 78; RESP 18; TEMP 98.1
[2020-11-17] MEDS ORDERED: FAMOTIDINE 20 MG/2 ML VIAL IV STA (11:24)
[2020-11-17] MEDS ORDERED: diphenhydrAMINE 50 MG/ML 1 ML VIAL IVP STA (11:24)
--- NOTE | 2020-11-17 11:42 | ED ---
Allergic Reaction HPI - General Chief complaint: Allergic Reaction Stated complaint: Allergic Reaction/Stung by Bees Time Seen by Provider: 11/17/20 11:20 Source: patient, EMS, RN notes reviewed Mode of arrival: EMS Limitations: no limitations - History of Present Illness Initial Comments: 75-year-old male presented to the emergency Department via EMS from urgent care after ALLERGIC reaction. Patient was stung several times by bees in his face. Patient states she's never had reaction this. He has no difficulty breathing or difficulty swallowing. Patient was given Depo-Medrol and oral Benadryl. Patient continues to have eye swelling denies any throat sensation any itching or swelling patient offers no other complaints. - Related Data Home Medications Medication Instructions Recorded Confirmed Aspirin 81 mg PO DAILY 11/17/16 11/17/16 Cyanocobalamin (Vitamin B-12) 1,000 mcg PO DAILY 11/17/16 11/17/16 [Vitamin B-12] Diclofenac Sodium [Voltaren] 75 mg PO BID 11/17/16 11/17/16 Multivitamins, Thera [Multivitamin 1 tab PO DAILY 11/17/16 11/17/16 (formulary)] Thiamine [Vitamin B-1] 100 mg PO DAILY 11/17/16 11/17/16 amLODIPine [Norvasc] 5 mg PO DAILY 11/17/16 11/17/16 Previous Rx's Medication Instructions Recorded Amoxicillin/Potassium Clav 1 tab PO Q12HR #20 tab 03/31/19 [Augmentin 875-125 Tablet] Fluticasone Nasal [place] [Flonase 1 spray EA NOSTRIL DAILY #1 bottle 03/31/19 Nasal [place]] predniSONE 50 mg PO DAILY #5 tablet 03/31/19 Allergies Allergy/AdvReac Type Severity Reaction Status Date / Time No Known Allergies Allergy Verified 11/17/20 11:17 Review of Systems ROS Statement: Those systems with pertinent positive or pertinent negative responses have been documented in the HPI. ROS Other: All systems not noted in ROS Statement are negative. Past Medical History Past Medical History: Cancer, Hypertension Additional Past Medical History / Comment(s): brusitis/sciatica in upper legs, prostate ca with removal History of Any Multi-Drug Resistant Organisms: None Reported Past Surgical History: Heart Catheterization, Hernia Repair, Orthopedic Surgery, Prostate Surgery Additional Past Surgical History / Comment(s): cataract, edda hip replacements Past Anesthesia/Blood Transfusion Reactions: No Reported Reaction Past Psychological History: No Psychological Hx Reported Smoking Status: Former smoker Past Alcohol Use History: Daily Past Drug Use History: None Reported - Past Family History Father Family Medical History: Coronary Artery Disease (CAD) Additional Family Medical History / Comment(s): passed at 41 from "heart problems" General Exam Limitations: no limitations General appearance: alert, in no apparent distress Head exam: Present: atraumatic, normocephalic, normal inspection Eye exam: Present: normal appearance, PERRL, EOMI, periorbital swelling (Bilateral). Absent: scleral icterus, conjunctival injection, periorbital tenderness ENT exam: Present: normal exam, normal oropharynx, mucous membranes moist, TM's normal bilaterally Neck exam: Present: normal inspection, full ROM. Absent: tenderness, meningismus, lymphadenopathy Respiratory exam: Present: normal lung sounds bilaterally. Absent: respiratory distress, wheezes, rales, rhonchi, stridor Cardiovascular Exam: Present: regular rate, normal rhythm, normal heart sounds. Absent: systolic murmur, diastolic murmur, rubs, gallop, clicks Course Vital Signs 11/17/20 11/17/20 11:12 11:16 Temperature 98.1 F Pulse Rate 78 Respiratory 18 18 Rate Blood Pressure 159/94 O2 Sat by Pulse 96 Oximetry Medical Decision Making - Medical Decision Making Patient's symptoms are greatly improved. Patient had no respiratory symptoms are difficult swelling throughout any of his reaction. Patient discharged in stable condition advise continue Benadryl and he was prescribed steroids return parameters were discussed. Disposition Clinical Impression: Allergic reaction to insect sting Disposition: HOME SELF-CARE Condition: Stable Instructions (If sedation given, give patient instructions): General Allergic Reaction (ED) Additional Instructions: Please return to the Emergency Department if symptoms worsen or any other co ncerns. Is patient prescribed a controlled substance at d/c from ED?: No Referrals: Mayito Louie MD [Primary Care Provider] - 1-2 days Time of Disposition: 11:57
[2020-11-17 12:25] VITALS: BP 159/95
== END 2020-11-17 12:59 | disposition home or self-care (01) ==
LOC: EC 11:11
DX: T63.481A Toxic effect of venom of other arthropod, accidental (unintentional), initial encounter (principal); I10 Essential (primary) hypertension; Z85.46 Personal history of malignant neoplasm of prostate; Z87.891 Personal history of nicotine dependence; Z79.1 Long term (current) use of non-steroidal anti-inflammatories (NSAID); Z79.52 Long term (current) use of systemic steroids; Z79.82 Long term (current) use of aspirin
CPT/HCPCS: 99284; 96374; 96375; J1200

== ENCOUNTER → 2020-11-25 | Outpatient (CLI) | payer MEDICARE ==
--- NOTE | 2020-11-25 08:59 | US ---
EXAMINATION TYPE: US carotid duplex BILAT DATE OF EXAM: 11/25/2020 COMPARISON: US CLINICAL HISTORY: Z86.73 Personal history transient ischemic attack. H/O TIA EXAM MEASUREMENTS: RIGHT: Peak Systolic Velocity (PSV) cm/sec ----- Right CCA: 54.6 ----- Right ICA: 57.4 ----- Right ECA: 87.5 ICA/CCA ratio: 1.1 RIGHT: End Diastole cm/sec ----- Right CCA: 11.0 ----- Right ICA: 17.5 ----- Right ECA: 16.0 LEFT: Peak Systolic Velocity (PSV) cm/sec ----- Left CCA: 63.8 ----- Left ICA: 72.9 ----- Left ECA: 82.5 ICA/CCA ratio: 1.1 LEFT: End Diastole cm/sec ----- Left CCA: 14.7 ----- Left ICA: 25.0 ----- Left ECA: 11.9 VERTEBRALS (direction of flow): Right Vertebral: Antegrade Left Vertebral: Antegrade Rhythm: Normal No significant stenosis seen, similar findings from previous US IMPRESSION: Atherosclerosis without sonographic evidence for hemodynamically significant stenosis in the bilatera l carotid arteries. Criteria for Assigning % of Stenosis / Diameter reduction (Estimation based on the indirect measurements of the internal carotid artery velocities (ICA PSV). 1. Normal (no stenosis)=ICA PSV < 125 cm/s: ratio < 2.0: ICA EDV<40 cm/s. 2. Less than 50% stenosis=ICA PSV < 125 cm/s: ratio < 2.0: ICA EDV<40 cm/s. 3. 50 to 69% stenosis=ICA PSV of 125 to 230 cm/s: ration 2.0 ? 4.0: ICA EDV 40-100 cm/s. 4. Greater than 70% stenosis to near occlusion= ICA PSV > 230 cm/s: ratio > 4.0: ICA EDV > 100 cm/s. 5. Near occlusion= ICA PSV velocities may be low or undetectable: variable ratio and ICA EDV. 6. Total occlusion=unable to detect flow.
== END | disposition home or self-care (01) ==
LOC: RADUSWWP 07:52
PROVIDERS: ATTEND Internal Medicine
DX: Z86.73 Personal history of transient ischemic attack (TIA), and cerebral infarction without residual deficits (principal)
CPT/HCPCS: 93880

== ENCOUNTER → 2021-01-08 | Outpatient (CLI) | payer MEDICARE ==
--- NOTE | 2021-01-08 09:51 | XR ---
EXAMINATION TYPE: XR chest 2V DATE OF EXAM: 01/08/2021 COMPARISON: 11/17/2016 INDICATION: Collapsed lung TECHNIQUE: Frontal and lateral views of the chest are obtained. FINDINGS: The heart size is normal. The pulmonary vasculature is normal. The lungs are clear. No pneumothorax is evident. IMPRESSION: 1. No acute pulmonary process.
== END | disposition home or self-care (01) ==
LOC: RADXRMAIN 08:34
PROVIDERS: ATTEND Internal Medicine
DX: J98.19 Other pulmonary collapse (principal)
CPT/HCPCS: 71046

== ENCOUNTER 2021-02-13 12:12 | Emergency (ER) | payer MEDICARE ==
[2021-02-13] MEDS ORDERED: FAMOTIDINE 20 MG/2 ML VIAL IV STA (12:36)
[2021-02-13] MEDS ORDERED: diphenhydrAMINE 50 MG/ML 1 ML VIAL IVP STA (12:36)
[2021-02-13] MEDS ORDERED: methylPREDNISolone SOD SUCCI 125 MG/2 ML VIAL IV STA (12:36)
--- NOTE | 2021-02-13 12:44 | ED ---
General Adult HPI - General Stated complaint: allergic reaction Time Seen by Provider: 02/13/21 12:36 Source: patient, RN notes reviewed Mode of arrival: ambulatory Limitations: no limitations - History of Present Illness Initial comments: This a 75-year-old male presents emergency Department chief complaint ALLERGIC reaction. Patient states he was outside and most likely was stung by a bee. Patient states he's had multiple reactions in the past. Patient states he has not taken anything prior arrival at home. Patient states there is very itchy, red, swelling. Patient states she does have an EpiPen at home but did not use it. He has some mild shortness of breath. - Related Data Home Medications Medication Instructions Recorded Confirmed Aspirin 81 mg PO DAILY 11/17/16 11/17/16 Cyanocobalamin (Vitamin B-12) 1,000 mcg PO DAILY 11/17/16 11/17/16 [Vitamin B-12] Diclofenac Sodium [Voltaren] 75 mg PO BID 11/17/16 11/17/16 Multivitamins, Thera [Multivitamin 1 tab PO DAILY 11/17/16 11/17/16 (formulary)] Thiamine [Vitamin B-1] 100 mg PO DAILY 11/17/16 11/17/16 amLODIPine [Norvasc] 5 mg PO DAILY 11/17/16 11/17/16 Previous Rx's Medication Instructions Recorded Amoxicillin/Potassium Clav 1 tab PO Q12HR #20 tab 03/31/19 [Augmentin 875-125 Tablet] Fluticasone Nasal [place] [Flonase 1 spray EA NOSTRIL DAILY #1 bottle 03/31/19 Nasal [place]] predniSONE 50 mg PO DAILY #5 tablet 03/31/19 predniSONE 50 mg PO DAILY #3 tab 02/13/21 Allergies Allergy/AdvReac Type Severity Reaction Status Date / Time bee venom protein (honey bee) Allergy Unknown Verified 02/13/21 12:43 Review of Systems ROS Statement: Those systems with pertinent positive or pertinent negative responses have been documented in the HPI. ROS Other: All systems not noted in ROS Statement are negative. Past Medical History Past Medical History: Cancer, Hypertension Additional Past Medical History / Comment(s): brusitis/sciatica in upper legs, prostate ca with removal History of Any Multi-Drug Resistant Organisms: None Reported Past Surgical History: Heart Catheterization, Hernia Repair, Orthopedic Surgery, Prostate Surgery Additional Past Surgical History / Comment(s): cataract, edda hip replacements Past Anesthesia/Blood Transfusion Reactions: No Reported Reaction Past Psychological History: No Psychological Hx Reported Smoking Status: Former smoker Past Alcohol Use History: Daily Past Drug Use History: None Reported - Past Family History Father Family Medical History: Coronary Artery Disease (CAD) Additional Family Medical History / Comment(s): passed at 41 from "heart problems" General Exam General appearance: alert, in no apparent distress Head exam: Present: atraumatic, normocephalic, normal inspection Eye exam: Present: normal appearance, PERRL, EOMI. Absent: scleral icterus, conjunctival injection, periorbital swelling ENT exam: Present: normal exam, normal oropharynx, mucous membranes moist Neck exam: Present: normal inspection, full ROM. Absent: tenderness, meningismus, lymphadenopathy Respiratory exam: Present: normal lung sounds bilaterally. Absent: respiratory distress, wheezes, rales, rhonchi, stridor Cardiovascular Exam: Present: regular rate, normal rhythm, normal heart sounds. Absent: systolic murmur, diastolic murmur, rubs, gallop, clicks Neurological exam: Present: alert, oriented X3, CN II-XII intact, reflexes normal. Absent: motor sensory deficit Skin exam: Present: warm, dry, intact, normal color. Absent: rash Course Vital Signs 02/13/21 02/13/21 12:43 12:49 Temperature 98.0 F Pulse Rate 90 89 Respiratory 22 20 Rate Blood Pressure 150/95 142/95 O2 Sat by Pulse 94 L 95 Oximetry Medical Decision Making - Medical Decision Making Patient is greatly improved, symptoms have resolved after Benadryl, Pepcid, Solu-Medrol patient be discharged in stable condition return parameters were discussed. Disposition Clinical Impression: Allergic reaction to insect sting Disposition: HOME SELF-CARE Condition: Stable Instructions (If sedation given, give patient instructions): General Allergic Reaction (ED) Additional Instructions: Continue Benadryl every 6 hours as directed Please return to the Emergency Department if symptoms worsen or any other concerns. Prescriptions: predniSONE 50 mg PO DAILY #3 tab Is patient prescribed a controlled substance at d/c from ED?: No Referrals: Mayito Louie MD [Primary Care Provider] - 1-2 days Time of Disposition: 13:39
[2021-02-13 12:46] VITALS: TEMP 98
[2021-02-13 12:51] VITALS: BP 142/95; PULSE 89; RESP 20
== END 2021-02-13 14:07 | disposition home or self-care (01) ==
LOC: EC 12:12
DX: T63.481A Toxic effect of venom of other arthropod, accidental (unintentional), initial encounter (principal); I10 Essential (primary) hypertension; Z79.52 Long term (current) use of systemic steroids; Z79.82 Long term (current) use of aspirin; Z79.1 Long term (current) use of non-steroidal anti-inflammatories (NSAID); Z79.899 Other long term (current) drug therapy; Z85.46 Personal history of malignant neoplasm of prostate; Z87.891 Personal history of nicotine dependence; Z82.49 Family history of ischemic heart disease and other diseases of the circulatory system
CPT/HCPCS: 96374; 96375 ×2; 99283; J1200; J2930

== ENCOUNTER → 2022-02-11 | Outpatient (CLI) | payer MEDICARE ==
[2022-02-11 14:27] LABS: Basophils # (A) 0.05 X 10*3/uL (0.00-0.10); Basophils % (A) 0.8 %; Eosinophils # (A) 0.14 X 10*3/uL (0.04-0.35); Eosinophils % (A) 2.3 %; HCT 45.4 % (39.6-50.0); HGB 15.6 g/dL (13.0-17.0); Immature Grans, Automated 0.2 %; Lymphocytes # (A) 1.35 X 10*3/uL (0.90-5.00); Lymphocytes % (A) 22.5 %; MCH 33.4 pg (27.0-32.0); MCHC 34.4 g/dL (32.0-37.0); MCV 97.2 fL (80.0-97.0); Mean Platelet Volume 10.7 fL (9.5-12.2); Monocytes # (A) 0.69 X 10*3/uL (0.20-1.00); Monocytes % (A) 11.5 %; NRBC Per 100 WBC 0 /100 WBCS (0.0-0.0); Neutrophils # (A) 3.75 X 10*3/uL (1.80-7.70); Neutrophils % (A) 62.7 %; Platelet Count 198 X 10*3/uL (140-440); RBC 4.67 X 10*6/uL (4.40-5.60); RDW 12.5 % (11.5-14.5); WBC 5.99 X 10*3/uL (4.50-10.00)
[2022-02-11 15:08] LABS: ALT 34 U/L (10-49); AST 30 U/L (14-35); African American GFR (CKD) 96.5 (60.0-200.0); Albumin 4.2 g/dL (3.8-4.9); Albumin/Globulin Ratio 1.56 (1.60-3.17); Alkaline Phosphatase 71 U/L (41-126); BUN/Creat Ratio 16.78 Ratio (12.00-20.00); Blood Urea Nitrogen 15.1 mg/dL (9.0-27.0); Calcium 9.2 mg/dL (8.7-10.3); Carbon Dioxide 26.6 mmol/L (20.0-27.5); Chloride 103 mmol/L (96-109); Chol/HDL Ratio 2.63 Ratio; Globulin 2.7 g/dL (1.6-3.3); Glucose 96 mg/dL (70-110); LDL Cholesterol,Calculated 82.2 mg/dL (0.0-131.0); Non-African American GFR(CKD) 83.3 (60.0-200.0); Potassium 4.8 mmol/L (3.5-5.5); Sodium 140 mmol/L (135-145); Total Protein 6.9 g/dL (6.2-8.2); VLDL Calculation 15.72 mg/dL (5.00-40.00)
[2022-02-11 15:23] LABS: Prostate Specific Antigen <0.01 ng/mL (0.00-6.50)
== END | disposition home or self-care (01) ==
LOC: LABWHC1 07:30
PROVIDERS: ATTEND Internal Medicine
DX: Z12.5 Encounter for screening for malignant neoplasm of prostate (principal); I10 Essential (primary) hypertension; E16.2 Hypoglycemia, unspecified
CPT/HCPCS: 36415; 80053; 80061; 83036; 84153; 84443; 85025

== ENCOUNTER → 2022-10-13 | Outpatient (CLI) | payer MEDICARE ==
--- NOTE | 2022-10-13 17:32 | US ---
EXAMINATION TYPE: US carotid duplex BILAT DATE OF EXAM: 10/13/2022 COMPARISON: 11-25 US CLINICAL INDICATION: Male, 77 years old with history of I77.9 DISORDER OF ARTERIES AND ARTERIOLES, U NSPEC; TECHNIQUE: Carotid duplex ultrasound examination. Indirect Doppler criteria was utilized. 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 R ight waveforms do appear dampened overall. IMPRESSION: No hemodynamically significant ICA stenosis on either side. Criteria for Assigning % of Stenosis / Diameter reduction (Estimation based on the indirect measurements of the internal carotid artery velocities (ICA PSV). 1. Normal (no stenosis)=ICA PSV < 125 cm/s: ratio < 2.0: ICA EDV<40 cm/s. 2. Less than 50% stenosis=ICA PSV < 125 cm/s: ratio < 2.0: ICA EDV<40 cm/s. 3. 50 to 69% stenosis=ICA PSV of 125 to 230 cm/s: ration 2.0 ? 4.0: ICA EDV 40-100 cm/s. 4. Greater than 70% stenosis to near occlusion= ICA PSV > 230 cm/s: ratio > 4.0: ICA EDV > 100 cm/s. 5. Near occlusion= ICA PSV velocities may be low or undetectable: variable ratio and ICA EDV. 6. Total occlusion=unable to detect flow.
== END | disposition home or self-care (01) ==
LOC: RADUSWWP 10:20
PROVIDERS: ATTEND Internal Medicine
DX: I77.9 Disorder of arteries and arterioles, unspecified (principal)
CPT/HCPCS: 93880

== ENCOUNTER → 2024-02-15 | Outpatient (CLI) | payer MEDICARE ==
[2024-02-15 10:21] LABS: Basophils # (A) 0.08 X 10*3/uL (0.00-0.10); Basophils % (A) 1.1 %; Eosinophils # (A) 0.28 X 10*3/uL (0.04-0.35); Eosinophils % (A) 3.9 %; HCT 46.1 % (39.6-50.0); HGB 15.9 g/dL (13.0-17.0); Lymphocytes # (A) 1.77 X 10*3/uL (0.90-5.00); Lymphocytes % (A) 24.7 %; MCH 34.4 pg (27.0-32.0); MCHC 34.5 g/dL (32.0-37.0); MCV 99.8 FL (80.0-97.0); Mean Platelet Volume 10.5 FL (9.5-12.2); Monocytes % (A) 9.8 %; NRBC Per 100 WBC 0 X 10*3/uL (0.00-0.01); Neutrophils # (A) 4.32 X 10*3/uL (1.80-7.70); Neutrophils % (A) 60.2 %; Platelet Count 219 X 10*3/uL (140-440); RBC 4.62 X 10*6/uL (4.40-5.60); WBC 7.17 X 10*3/uL (4.50-10.00)
[2024-02-15 10:44] LABS: ALT 36 U/L (10-49); AST 25 U/L (14-35); Albumin/Globulin Ratio 1.54 Ratio (1.60-3.17); Alkaline Phosphatase 65 U/L (41-126); Carbon Dioxide 24.7 mmol/L (21.6-31.8); Chloride 104 mmol/L (96-109); Chol/HDL Ratio 2.66 Ratio; Globulin 2.6 g/dL (1.6-3.3); Glucose 92 mg/dL (70-110); LDL Cholesterol,Calculated 98.3 mg/dL (0.0-131.0); Potassium 4.8 mmol/L (3.5-5.5); Sodium 139 mmol/L (135-145); Total Bilirubin 0.4 mg/dL (0.3-1.2); Total Protein 6.6 g/dL (6.2-8.2); VLDL Calculation 11.64 mg/dL (5.00-40.00)
[2024-02-15 10:47] LABS: PSA Annual Screen <0.014 ng/mL (0.000-4.000)
== END | disposition home or self-care (01) ==
LOC: LABWHC1 06:51
PROVIDERS: ATTEND Internal Medicine
CPT/HCPCS: 36415; 80053; 80061; 83036; 84443; 85025

== ENCOUNTER → 2024-02-23 | Outpatient (CLI) | payer MEDICARE ==
--- NOTE | 2024-02-23 13:17 | US ---
EXAMINATION TYPE: US carotid duplex BILAT DATE OF EXAM: 02/23/2024 COMPARISON: NONE CLINICAL INDICATION: Male, 78 years old with history of I779 CAROTID ARTERIAL DISEASE; Patient states no issues or h/o stroke TECHNIQUE: Grayscale, color Doppler and spectral Doppler evaluation of the bilateral carotid systems and vertebral arteries.Indirect Doppler criteria was utilized. FINDINGS: EXAM MEASUREMENTS: RIGHT: Peak Systolic Velocity (PSV) cm/sec ----- Right CCA: 54.2 ----- Right ICA: 56.4 ----- Right ECA: 115.0 ICA/CCA ratio: 1.0 RIGHT: End Diastole cm/sec ----- Right CCA: 7.4 ----- Right ICA: 13.4 ----- Right ECA: 11.8 LEFT: Peak Systolic Velocity (PSV) cm/sec ----- Left CCA: 68.9.9 ----- Left ICA: 64.5 ----- Left ECA: 110.0 ICA/CCA ratio: 0.9 LEFT: End Diastole cm/sec ----- Left CCA: 13.4 ----- Left ICA: 15.0 ----- Left ECA: 14.3 VERTEBRALS (direction of flow): Right Vertebral: Antegrade Left Vertebral: Antegrade Rhythm: Normal EMPLOYEE SERVICES MANAGER NOTES: Mild homogeneous plaque with no stenosis seen IMPRESSION: Right: Less than 50% stenosis of the carotid bifurcation. Normal (no stenosis)=ICA PSV < 125 cm/s: ra jaelyn < 2.0: ICA EDV<40 cm/s. Left: Less than 50% stenosis of the carotid bifurcation. Normal (no stenosis)=ICA PSV < 125 cm/s: rat io < 2.0: ICA EDV<40 cm/s. Criteria for Assigning % of Stenosis / Diameter reduction (Estimation based on the indirect measurements of the internal carotid artery velocities (ICA PSV). 1. Normal (no stenosis)=ICA PSV < 125 cm/s: ratio < 2.0: ICA EDV<40 cm/s. 2. Less than 50% stenosis=ICA PSV < 125 cm/s: ratio < 2.0: ICA EDV<40 cm/s. 3. 50 to 69% stenosis=ICA PSV of 125 to 230 cm/s: ration 2.0 ? 4.0: ICA EDV 40-100 cm/s. 4. Greater than 70% stenosis to near occlusion= ICA PSV > 230 cm/s: ratio > 4.0: ICA EDV > 100 cm/s. 5. Near occlusion= ICA PSV velocities may be low or undetectable: variable ratio and ICA EDV. 6. Total occlusion=unable to detect flow. [facility], , 02/23/2024 1:15 PM
== END | disposition home or self-care (01) ==
LOC: RADUSWWP 12:05
PROVIDERS: ATTEND Internal Medicine
DX: I65.23 Occlusion and stenosis of bilateral carotid arteries (principal)
CPT/HCPCS: 93880